=== PATIENT | male | born 1990 | race Caucasian/White ===

== ENCOUNTER 2020-06-17 14:48 | Emergency (ER) | payer OTHER ==
[2020-06-17 15:06] VITALS: BP 114/73; PULSE 80; TEMP 98.1; BMI 23.6
== END 2020-06-17 17:09 | disposition home or self-care (01) ==
LOC: JERFT 14:48
DX: R53.83 Other fatigue (principal); Z11.59 Encounter for screening for other viral diseases
CPT/HCPCS: 71045-TC-FY; 87804; 99284-25; C9803; U0003